=== PATIENT | female | born 1940 | race Caucasian/White ===

== ENCOUNTER 2018-12-02 19:37 | Emergency (ER) | payer MEDICARE, OTHER, MEDICAID ==
[2018-12-02] MEDS: HYDROCODONE/APAP (5/325) TAB PO (21:38)
== END 2018-12-02 22:30 | disposition home or self-care (01) ==
LOC: FTE 19:37
DX: M25.572 Pain in left ankle and joints of left foot (principal); I10 Essential (primary) hypertension
CPT/HCPCS: 99283